=== PATIENT | female | born 1950 | race Caucasian/White ===

== ENCOUNTER → 2017-01-01 | Outpatient (CLI) | payer MEDICARE ==
[~2017-01-01] MED LIST: CARI350T20 PO; CYMB60CA PO; DOCU1CAP39 PO; FENT50T T-DERMAL; LISI10TA3 PO; LYRI100C PO; MIRA33504 PO; MONT10TA2 PO; OXYC1TAB36 PO; PANT40TA3 PO; ZOFR4TAB3 SL; ZYRT10CA PO
--- NOTE | 2017-01-11 10:27 | RSPPFT ---
DATE OF PROCEDURE: 01/01/17 COMMENTS: VOLUMES DYNAMIC: FVC normal; FEV1 mildly reduced. STATIC: TLC, FRC and RV normal. FLOWS: FEV1% mildly reduced; FEF 25-75 severely reduced. DIFFUSION: Normal. FLOW VOLUME LOOP: Pattern of variable intrathoracic airways obstruction. IMPRESSION: Mild obstructive ventilatory defect with no significant hyperinflation and no reduction in diffusion. There is significant improvement post-bronchodilator.
== END ==
LOC: HRSP 12:56
PROVIDERS: ATTEND Internal Medicine
DX: J45.909 Unspecified asthma, uncomplicated (principal)
CPT/HCPCS: 94060; 94620; 94726; 94729

== ENCOUNTER 2017-01-22 16:32 | Emergency (ER) | payer MEDICARE ==
[~2017-01-22] VITALS: Ht 154.9 cm; Wt 66.0 kg
[2017-01-22 16:40] VITALS: BP 153/74; PULSE 74; RESP 16; TEMP 98.9; O2SAT 95
--- NOTE | 2017-01-22 17:00 | RADRPT ---
EXAM DATE/TIME: 01/22/2017 16:49 [facility] COMPARISON: No previous studies available for comparison. INDICATIONS : Left wrist pain and swelling since falling yesterday. MEDICAL HISTORY : None. SURGICAL HISTORY : None. ENCOUNTER: Initial ACUITY: 2 days PAIN SCORE: 6/10 LOCATION: Left wrist. FINDINGS: Three view examination of the left wrist demonstrates no soft tissue swelling, dislocation, or fractu re. The carpal bones are in normal alignment. The joint spaces are maintained. Mild osteopenia. CONCLUSION: Normal examination for a patient of this age. Renato Ching MD on January 22, 2017 at 16:58 Board Certified Radiologist. This report was verified electronically.
--- NOTE | 2017-01-22 17:11 | PD ---
HPI Chief Complaint: Injury Time Seen by Provider: 17:03 Travel History International Travel<30 days: No Contact w/Intl Traveler<30days: No Traveled to known affect area: No History of Present Illness HPI Patient comes in complaining of left wrist pain describes as "it just hurts". Patient reports she had a mechanical fall tripping over a bag of dirt causing her to land on her left outstretched hand. Patient has been using Lamont wrap and ice with minimal relief symptoms. Pain is worse certain movement of her left wrist. Denies hitting her head or loss of consciousness. Denies any radiation of the pain. Denies any numbness or tingling anywhere. PFSH Past Medical History Hx Anticoagulant Therapy: No Arthritis: Yes Asthma: Yes Depression: Yes Cancer: No Cardiovascular Problems: Yes Diabetes: No Diminished Hearing: No Endocrine: No Fibromyalgia: Yes Gastrointestinal Disorders: Yes GERD: Yes Genitourinary: No Hepatitis: No Hiatal Hernia: No Hypertension: Yes Immune Disorder: No Musculoskeletal: Yes Neurologic: No Reproductive: No Respiratory: Yes (ASTHMA) Immunizations Current: No Thyroid Disease: No : 2 Para: 2 Past Surgical History Genitourinary Surgery: Yes (RECTOCELE) Gynecologic Surgery: Yes Hysterectomy: Yes Oral Surgery: Yes (SINUS SURGERY) Tonsillectomy: Yes Other Surgery: Yes (ESOPHOGEAL HERNIA REPAIR) Social History Alcohol Use: Yes (1 GLASS WINE W/ DINNER DAILY) Tobacco Use: No Substance Use: No Allergies-Medications (Allergen,Severity, Reaction): Coded Allergies: No Known Allergies (Verified , 01/22/17) Reported Meds & Prescriptions Reported Meds & Active Scripts Active Pantoprazole (Pantoprazole Sodium) 40 Mg Tab 40 Mg PO DAILY Miralax Powder (Polyethylene Glycol 3350 Powder) 17 Gm Powd 17 Gm PO DAILY Mix and dissolve one measuring cap-ful (17 grams) in water or juice. Dok (Docusate Sodium) 100 Mg Cap 100 Mg PO BID 30 Days Oxycodone-Acetaminophen 10-325 mg Tab 1 Tab PO Q6H PRN Duragesic Patch 72 HR (Fentanyl) 50 Mcg/Hr Patch 50 Mcg T-DERMAL Q72H Remove old patch when new one placed. Carisoprodol 350 Mg Tab 350 Mg PO Q8HR Zofran Odt (Ondansetron Odt) 4 Mg Tab 4 Mg SL Q6HR PRN Reported Singulair (Montelukast Sodium) 10 Mg Tab 10 Mg PO HS Lisinopril 10 Mg Tab 10 Mg PO DAILY Zyrtec Allergy (Cetirizine HCl) 10 Mg Cap 10 Mg PO DAILY Cymbalta DR (Duloxetine HCl) 60 Mg Capdr 60 Mg PO DAILY Lyrica (Pregabalin) 100 Mg Cap 100 Mg PO DAILY Review of Systems Except as stated in HPI: all other systems reviewed are Neg Physical Exam Narrative GENERAL: Well-developed, well nourished, in no acute distress, and non-ill appearing. SKIN: Focused skin assessment warm and dry. HEAD: Atraumatic. Normocephalic. EYES: Pupils equal and round. EOMI. No scleral icterus. No injection or drainage. ENT: No nasal bleeding or discharge. Mucous membranes pink and moist. NECK: Trachea midline. Supple. No nuclear rigidity. CARDIOVASCULAR: Radial pulses 2+, intact, and equal bilaterally. Capillary refill less than 2 seconds. RESPIRATORY: No accessory muscle use. No respiratory distress. MUSCULOSKELETAL: No obvious deformities. No clubbing. No cyanosis. No edema. Full range of motion. Wrist: FROM and equal BL with passive flexion, extension, and pronation/supination. Capillary refill less than 2 seconds distal to injury and equal BL. FROM distal to injury and equal BL. Strength distal to injury equal BL. NV intact distal to injury. Flexion and extension of thumb equal BL. Equal strength and movement with abduction/adductions of BL fingers. Tile Sprayer strength equal BL. No tenderness to the anatomical snuffbox. Patient reports tenderness palpation over dorsal aspect of left wrist. There is no crepitus. NEUROLOGICAL: Awake and alert. No obvious cranial nerve deficits. Motor grossly within normal limits. Normal speech. PSYCHIATRIC: Appropriate mood and affect; insight and judgment normal. Data Data Last Documented VS Vital Signs Date Time Temp Pulse Resp B/P (MAP) Pulse Ox O2 Delivery O2 Flow Rate FiO2 01/22/17 16:40 98.9 74 16 153/74 (100) 95 Orders Orders Ice/Cold Pack (01/22/17 16:46) Wrist, Complete ([id number]) (01/22/17 ) Splint Or Brace Apply/Monitor (01/22/17 17:07) Ed Discharge Order (01/22/17 17:07) MDM Medical Decision Making Medical Screen Exam Complete: Yes Emergency Medical Condition: Yes Differential Diagnosis Fracture, sprain, contusion, other Narrative Course There is no clinical evidence for fracture. There is no clinical evidence to suspect bony injury by exam. Radiographic examination revealed no fracture seen at this time. No obvious ligamental injury or internal derangement is noted at this time. The distal extremity appears neurovascularly intact, without evidence of neurovascular injury nor compartment syndrome. Tendon exam also was intact. The effected limb was splinted. The patient was discharged on pain medication along with sprain and splint care instructions and given warnings for vascular compromise. The patient is to follow up with her primary care doctor and/or hand surgeon. The patient agrees with plan. Patient in no obvious distress upon re-evaluation. All pertinent Radiology result(s) discussed with patient. Any questions/concerns in reference to patient diagnosis/condition discussed and clarified prior to patient's discharge. Reinforced sheer importance of close follow up with patient's primary physician or primary care clinic and/or hand surgeon. Instructed patient to return to ED immediately, if symptoms return/worsen. Patient showed understanding of above instructions. Further instructions and recommendations were detailed in discharge paperwork. Patient ambulated without difficulty out of ED at discharge. Diagnosis Primary Impression: Left wrist sprain Qualified Codes: S63.502A - Unspecified sprain of left wrist, initial encounter Patient Instructions: General Instructions, Splint Care (ED), Wrist Sprain (ED) Additional Instructions: Follow-up with your primary care physician and/or hand surgeon in 3-5 days for reevaluation. Use [id number] Tylenol and/or ibuprofen as needed for pain. Follow instructions on the packaging. Plan ice to affected area 20 minutes per hour as needed for pain. Wear a splint for comfort as needed. Return to the emergency department if symptoms get worse. Disposition: 01 DISCHARGE HOME Condition: Stable Mariusz Guy Jan 22, 2017 17:11
== END 2017-01-22 17:24 | disposition home or self-care (01) ==
LOC: PHEFT 16:32
DX: S63.502A Unspecified sprain of left wrist, initial encounter (principal); M25.532 Pain in left wrist; W01.0XXA Fall on same level from slipping, tripping and stumbling without subsequent striking against object, initial encounter; K21.9 Gastro-esophageal reflux disease without esophagitis; J45.909 Unspecified asthma, uncomplicated; Z79.899 Other long term (current) drug therapy
CPT/HCPCS: 73110; 99283; L3908

== ENCOUNTER 2017-06-03 10:48 | Inpatient (IN) | payer MEDICARE ==
[2017-06-03] VITALS (13 sets, daily range): BP systolic 70–127; BP diastolic 45–60; PULSE 60–77; RESP 12–26; TEMP 96.6–98.4; O2SAT 90–100
[~2017-06-03] VITALS: Ht 154.9 cm; Wt 73.0 kg
--- NOTE | 2017-06-03 10:59 | PD ---
HPI Chief Complaint: Altered Mental Status Time Seen by Provider: 10:58 Travel History International Travel<30 days: No Contact w/Intl Traveler<30days: No Traveled to known affect area: No History of Present Illness HPI 67-year-old female came to the emergency room with history of altered mental status. Patient was in the hospital with her to get her [id number]' s dialysis done. As per the patient has been lethargic since this morning at around 8:30 AM he noticed that she was dozing off more than usual. As per the last night she had a lot to drink which included multiple cocktails, shots of saida and a few glasses of wine. While patient was in the waiting room the honing machine operator tool noticed how she was behaving and recommended that she should come to the emergency room to be checked out. In triage patient was extremely groggy and blood pressure in the 70s. She was brought in emergently. Patient continued to be very lethargic and unable to answer questions. Blood pressure was 70 per palp upon arrival. Blood sugar was 134. Patient obviously was in no condition to give any meaningful history. As per the she is on sleeping pills as well as pain medications. PFSH Past Medical History Narrative Medical List of her past medical, surgical, social and family history was reviewed from the nursing note. Hx Anticoagulant Therapy: No Arthritis: Yes Asthma: Yes Depression: Yes Cancer: No Cardiovascular Problems: Yes Diabetes: No Diminished Hearing: No Endocrine: No Fibromyalgia: Yes Gastrointestinal Disorders: Yes GERD: Yes Genitourinary: No Hepatitis: No Hiatal Hernia: No Hypertension: Yes Immune Disorder: No Musculoskeletal: Yes Neurologic: No Reproductive: No Respiratory: Yes (ASTHMA) Immunizations Current: No Thyroid Disease: No ?: Not : 2 Para: 2 Past Surgical History Genitourinary Surgery: Yes (RECTOCELE) Gynecologic Surgery: Yes Hysterectomy: Yes Oral Surgery: Yes (SINUS SURGERY) Tonsillectomy: Yes Other Surgery: Yes (ESOPHOGEAL HERNIA REPAIR) Social History Alcohol Use: Yes (1 GLASS WINE W/ DINNER DAILY) Tobacco Use: No Substance Use: No Allergies-Medications (Allergen,Severity, Reaction): Coded Allergies: No Known Allergies (Verified Allergy, Unknown, 06/03/17) Comments no known drug allergies. Reported Meds & Prescriptions Reported Meds & Active Scripts Active Reported Seroquel (Quetiapine Fumarate) 50 Mg Tab 50 Mg PO BID Gabapentin 100 Mg Cap 200 Mg PO BID Ventolin Hfa 18 GM Inh (Albuterol Sulfate) 90 Mcg/Act Aer 1-2 Puff INH Q6H PRN Flonase Nasal Burton (Fluticasone Nasal Burton) 50 Mcg/Act Burton 2 Burton EACH NARE DAILY Advair Diskus Inh (Fluticasone-Salmeterol Inh) 500-50 Mcg/Blist Aer 1 Puff INH BID Rinse mouth after use. Hydrocodone-Acetaminophen 10-325 mg Tab 1 Tab PO TID PRN Omeprazole 40 Mg Cap 40 Mg DAILY Singulair (Montelukast Sodium) 10 Mg Tab 10 Mg PO HS Cymbalta DR (Duloxetine HCl) 60 Mg Capdr 60 Mg PO DAILY Narrative Medication List of her home medications reviewed from the nursing note. Review of Systems ROS Limitations: Altered Mental Status Except as stated in HPI: all other systems reviewed are Neg Physical Exam Narrative GENERAL: Stuporous, maintaining respirations SKIN: Focused skin assessment warm/dry. Pale HEAD: Atraumatic. Normocephalic. EYES: Pupils equal and round. No scleral icterus. No injection or drainage. ENT: No nasal bleeding or discharge. Mucous membranes pink and moist. NECK: Trachea midline. No JVD. CARDIOVASCULAR: Regular rate and rhythm. No murmur appreciated. RESPIRATORY: No accessory muscle use. Clear to auscultation. Breath sounds equal bilaterally. GASTROINTESTINAL: Abdomen soft, non-tender, nondistended. Hepatic and splenic margins not palpable. MUSCULOSKELETAL: No obvious deformities. No clubbing. No cyanosis. No edema. NEUROLOGICAL: GCS of 11 PSYCHIATRIC: Unable to assess Data Data Last Documented VS Vital Signs Date Time Temp Pulse Resp B/P (MAP) Pulse Ox O2 Delivery O2 Flow Rate FiO2 06/03/17 11:45 96.6 65 13 105/56 (72) 98 Nasal Cannula 2.00 Orders Orders Naloxone Inj (Narcan Inj) (06/03/17 11:04) Electrocardiogram (06/03/17 11:12) Ammonia (06/03/17 11:12) Complete Blood Count With Diff (06/03/17 11:12) Comprehensive Metabolic Panel (06/03/17 11:12) Creatine Kinase (Cpk) (06/03/17 11:12) Prothrombin Time / Inr (Pt) (06/03/17 11:12) Troponin I (06/03/17 11:12) Thyroid Stimulating Hormone (06/03/17 11:12) Urinalysis - C+S If Indicated (06/03/17 11:12) Lactic Acid Sepsis Protocol (06/03/17 11:12) Blood Culture (06/03/17 11:12) Chest, Single Ap (06/03/17 11:12) Ct Brain W/O Iv Contrast(Rout) (06/03/17 11:12) Blood Glucose (06/03/17 11:12) Ecg Monitoring (06/03/17 11:12) Iv Access Insert/Monitor (06/03/17 11:12) Oximetry (06/03/17 11:12) Sodium Chloride 0.9% Flush (Ns Flush) (06/03/17 11:15) Sodium Chlor 0.9% 1000 Ml Inj (Ns 1000 M (06/03/17 11:12) Drug Screen, Random Urine (06/03/17 11:12) Alcohol (Ethanol) (06/03/17 11:12) Tylenol (Acetaminophen) (06/03/17 11:12) Salicylates (Aspirin) (06/03/17 11:12) Sodium Chlor 0.9% 1000 Ml Inj (Ns 1000 M (06/03/17 11:15) Urinary Catheter Insert/Apply (06/03/17 11:12) Urine Culture (06/03/17 11:15) Sodium Chlor 0.9% 1000 Ml Inj (Ns 1000 M (06/03/17 12:45) Acetylcysteine Inj (Acetadote Inj) (06/03/17 13:00) Acetylcysteine Inj (Acetadote Inj) (06/03/17 13:00) Acetylcysteine Inj (Acetadote Inj) (06/03/17 13:00) Acetylcysteine Inj (Acetadote Inj) (06/03/17 14:00) Arterial Blood Gas (Abg) (06/03/17 ) Mri Brain W/O Contrast (06/03/17 ) Sodium Chlor 0.9% 1000 Ml Inj (Ns 1000 M (06/03/17 13:30) Admit Order (Ed Use Only) (06/03/17 13:20) Labs Laboratory Tests Test 06/03/17 11:15 06/03/17 11:17 06/03/17 11:23 White Blood Count 14.2 TH/MM3 Red Blood Count 4.27 MIL/MM3 Hemoglobin 12.8 GM/DL Hematocrit 38.5 % Mean Corpuscular Volume 90.1 FL Mean Corpuscular Hemoglobin 30.0 PG Mean Corpuscular Hemoglobin Concent 33.2 % Red Cell Distribution Width 13.0 % Platelet Count 216 TH/MM3 Mean Platelet Volume 8.2 FL Neutrophils (%) (Auto) 68.4 % Lymphocytes (%) (Auto) 21.7 % Monocytes (%) (Auto) 5.3 % Eosinophils (%) (Auto) 4.4 % Basophils (%) (Auto) 0.2 % Neutrophils # (Auto) 9.7 TH/MM3 Lymphocytes # (Auto) 3.1 TH/MM3 Monocytes # (Auto) 0.8 TH/MM3 Eosinophils # (Auto) 0.6 TH/MM3 Basophils # (Auto) 0.0 TH/MM3 CBC Comment DIFF FINAL Differential Comment Prothrombin Time 10.4 SEC Prothromb Time International Ratio 1.0 RATIO Urine Color YELLOW Urine Turbidity HAZY Urine pH 5.5 Urine Specific [place] 1.021 Urine Protein TRACE mg/dL Urine Glucose (UA) NEG mg/dL Urine Ketones NEG mg/dL Urine Occult Blood NEG Urine Nitrite NEG Urine Bilirubin NEG Urine Urobilinogen LESS THAN 2.0 MG/DL Urine Leukocyte Esterase NEG Urine RBC 1 /hpf Urine WBC 4 /hpf Urine Squamous Epithelial Cells 2 /hpf Urine Calcium Oxalate Crystals OCC /hpf Urine Bacteria FEW /hpf Urine Hyaline Casts 22 /lpf Urine Mucus FEW /lpf Microscopic Urinalysis Comment CATH-CULTURE IND Blood Urea Nitrogen 24 MG/DL Creatinine 1.37 MG/DL Random Glucose 136 MG/DL Total Protein 6.4 GM/DL Albumin 3.7 GM/DL Calcium Level 8.9 MG/DL Alkaline Phosphatase 70 U/L Aspartate Amino Transf (AST/SGOT) 17 U/L Alanine Aminotransferase (ALT/SGPT) 16 U/L Total Bilirubin 0.2 MG/DL Sodium Level 139 MEQ/L Potassium Level 4.9 MEQ/L Chloride Level 106 MEQ/L Carbon Dioxide Level 26.0 MEQ/L Anion Gap 7 MEQ/L Estimat Glomerular Filtration Rate 38 ML/MIN Total Creatine Kinase 163 U/L Troponin I LESS THAN 0.02 NG/ML Thyroid Stimulating Hormone 3rd Gen 4.560 uIU/ML Salicylates Level LESS THAN 1.7 MG/DL Acetaminophen Level 8.8 MCG/ML Ethyl Alcohol Level 3 MG/DL Urine Opiates Screen POS Urine Barbiturates Screen NEG Urine Amphetamines Screen NEG Urine Benzodiazepines Screen POS Urine Cocaine Screen NEG Urine Cannabinoids Screen NEG Lactic Acid Level 2.0 mmol/L Ammonia 23 MCMOL/L MDM Medical Decision Making Medical Screen Exam Complete: Yes Emergency Medical Condition: Yes Medical Record Reviewed: Yes Interpretation(s) Twelve-lead EKG was reviewed by me. Normal sinus rhythm, normal axis, nonspecific ST-T wave changes. Heart rate of 61 bpm. Differential Diagnosis Sepsis, metabolic encephalopathy, toxic encephalopathy Narrative Course 12:52 PM patient was given 0.4 mg of Narcan initially which caused reversal of her stuporous state. She was started on 2 L of IV fluid bolus simultaneously. Currently her blood pressure is 91 systolic. Patient continues to be in GCS of 11. I've ordered for a third liter of IV fluid bolus. Patient has made a second 100 ML of urine from the Lucas catheter into the urine bag. Blood test results are back. She has some leukocytosis. Lactic acid is within normal limits and rest of the chemistry is within normal limit. TSH is elevated. UA is negative. Patient was positive for opiates and benzo in her urine drug screen. I would prefer to admit the patient to the intensive care unit at this point. Awaiting for the transition teacher to call back. Critical Care Narrative Aggregate critical care time was 75 minutes. Time to perform other separately billable procedures was not included in the critical care time. My time did not include minutes spent treating any other patients simultaneously or on activities that did not directly contribute to the patient's treatment. The services I provided to this patient were to treat and/or prevent clinically significant deterioration that could result in: Hypertension, altered mental status, possible Tylenol toxicity I provided critical care services requiring my management, as noted below: Chart data review, documentation time, medication orders and management, vital sign assessments/reviewing monitor data, ordering and reviewing lab tests, ordering and interpreting/reviewing x-rays and diagnostic studies, care of the patient and discussion of the patient with the admitting physicians. Procedures EKG Prior to Arrival: No Diagnosis Primary Impression: Altered mental status Qualified Codes: R40.1 - Stupor Additional Impressions: Hypovolemic shock Toxic encephalopathy Admitting Information Admitting Physician Requests: Admit Scripts Levofloxacin (Levaquin) 750 Mg Tablet 750 MG PO DAILY for Infection, #7 TAB 0 Refills Prov: Carmen Mejia DO 06/04/17 Patt Valencia MD Jun 03, 2017 10:59
[2017-06-03] MEDS ORDERED: CYMB60CA PO (11:04)
[2017-06-03] MEDS ORDERED: NALOXONE HCL 0.4 MG/ML AMP ONE (11:04)
[2017-06-03] MEDS ORDERED: SODIUM CHLOR 0.9% 1000 ML INJ 1,000 ML IV SCH (11:12)
[2017-06-03] MEDS ORDERED: SODIUM CHLORIDE 0.9% FLUSH 10 ML FLUSH IV FLUSH PRN (11:15)
[2017-06-03] MEDS ORDERED: SODIUM CHLOR 0.9% 1000 ML INJ 1,000 ML IV ONE ×3 (11:15→13:30)
[2017-06-03] MEDS ORDERED: ADVA500A INH (11:27)
[2017-06-03] MEDS ORDERED: HYDR-3583 PO (11:27)
[2017-06-03] MEDS ORDERED: FLUT1SPR5 EACH NARE (11:27)
[2017-06-03] MEDS ORDERED: AMOX500C PO (11:27)
[2017-06-03] MEDS ORDERED: SERO50TA PO (11:27)
[2017-06-03] MEDS ORDERED: PRED10PA2 PO (11:27)
[2017-06-03] MEDS ORDERED: GABA100C4 PO (11:27)
[2017-06-03] MEDS ORDERED: VENTAER INH (11:27)
[2017-06-03] MEDS ORDERED: OMEP40CA2 (11:27)
--- NOTE | 2017-06-03 11:44 | RADRPT ---
EXAM DATE/TIME: 06/03/2017 11:26 [facility] COMPARISON: CHEST SINGLE AP, March 29, 2016, 21:16. INDICATIONS : Syncope, short of breath, lethargic MEDICAL HISTORY : Hypertension. Gastroesophageal reflux disease. asthma, fibromyalgia SURGICAL HISTORY : Hysterectomy. Tonsillectomy. esophageal repair, sinus surgery ENCOUNTER: Initial ACUITY: 1 day PAIN SCORE: Non-responsive. LOCATION: Bilateral chest FINDINGS: Portable AP view of the chest demonstrates a normal-sized cardiac silhouette. There is marked underin flation of the lungs with elevation the right hemidiaphragm. There is mild bibasilar opacity. No pleu ral effusion or pneumothorax is identified. The bones demonstrate no acute finding. CONCLUSION: Underinflation with bibasilar airspace opacity which could represent either atelectasis or airspace c onsolidation. Issac Ortiz MD on June 03, 2017 at 11:42 Board Certified Radiologist. This report was verified electronically.
[2017-06-03 11:46] LABS: AUTOMATED NEUTROPHIL # 9.7 TH/MM3 (1.8-7.7); BASOPHIL % 0.2 % (0.0-2.0); EOSINOPHIL # 0.6 TH/MM3 (0-0.4); EOSINOPHIL % 4.4 % (0.0-4.0); HEMATOCRIT 38.5 % (35.0-46.0); HEMOGLOBIN 12.8 GM/DL (11.6-15.3); LYMPH % 21.7 % (9.0-44.0); LYMPHOCYTE # 3.1 TH/MM3 (1.0-4.8); MEAN CELL VOLUME 90.1 FL (80.0-100.0); MEAN CORPUSCULAR HGB CONC 33.2 % (32.0-36.0); MEAN PLATELET VOLUME 8.2 FL (7.0-11.0); MONO % 5.3 % (0.0-8.0); MONOCYTE # 0.8 TH/MM3 (0-0.9); NEUT % 68.4 % (16.0-70.0); PLATELET COUNT 216 TH/MM3 (150-450); RED BLOOD COUNT 4.27 MIL/MM3 (4.00-5.30); WHITE BLOOD COUNT 14.2 TH/MM3 (4.0-11.0)
[2017-06-03 11:55] LABS: PROTHROMBIN TIME - PATIENT 10.4 SEC (9.8-11.6)
--- NOTE | 2017-06-03 11:58 | RADRPT ---
EXAM DATE/TIME: 06/03/2017 11:48 [facility] COMPARISON: No previous studies available for comparison. INDICATIONS : Altered mental status RADIATION DOSE: 56.35 CTDIvol (mGy) MEDICAL HISTORY : Hypertension. Fibromyalgia SURGICAL HISTORY : Hysterectomy. ENCOUNTER: Initial ACUITY: 1 day PAIN SCALE: Non-responsive LOCATION: Bilateral cranial TECHNIQUE: Multiple contiguous axial images were obtained of the head. Using automated exposure control and adjustment of the mA and/or kV according to patient size, radiation dose was kept as low as reasonably achievable to obtain optimal diagnostic quality images. DICOM format image data is av ailable electronically for review and comparison. FINDINGS: CEREBRUM: The ventricles are normal for age. No evidence of midline shift, mass lesion, hemorrha ge or acute infarction. No extra-axial fluid collections are seen. POSTERIOR FOSSA: The cerebellum and brainstem are intact. The 4th ventricle is midline. The cer ebellopontine angle is unremarkable. EXTRACRANIAL: The visualized portion of the orbits is intact. SKULL: The calvaria is intact. No evidence of skull fracture. CONCLUSION: Negative for an acute process. Pacheco Baker MD FACR on June 03, 2017 at 11:56 Board Certified Radiologist. This report was verified electronically.
[2017-06-03 11:59] LABS: BACTERIA, URINE FEW /hpf; BILIRUBIN, URINE NEG (NEG); BLOOD, URINE NEG (NEG); CALCIUM OXALATE CRYSTALS,URINE OCC /hpf; GLUCOSE,URINE NEG (NEG); HYALINE CAST, URINE 22 /lpf (RARE); KETONE, URINE NEG (NEG); MUCUS URINE FEW /lpf (OCC); NITRITE,URINE NEG (NEG); PH, URINE 5.5 (5.0-8.5); SQUAMOUS EPITHELIAL CELL URINE 2 /hpf (0-5); URINE COLOR YELLOW (YELLW/STRAW); URINE LEUKOCYTE ESTERASE NEG (NEG)
[2017-06-03 12:18] LABS: ACETAMINOPHEN 8.8 MCG/ML (10.0-30.0); ALBUMIN 3.7 GM/DL (3.4-5.0); ALKALINE PHOSPHATASE 70 U/L (45-117); ALT (GPT) 16 U/L (10-53); AST (GOT) 17 U/L (15-37); BLOOD UREA NITROGEN 24 MG/DL (7-18); CALCIUM 8.9 MG/DL (8.5-10.1); CHLORIDE 106 MEQ/L (98-107); CREATININE 1.37 MG/DL (0.50-1.00); GLOMERULAR FILTRATION RATE 38 ML/MIN (>89); GLUCOSE,RANDOM 136 MG/DL (74-106); SODIUM (NA) 139 MEQ/L (136-145); TOTAL BILIRUBIN ADULT 0.2 MG/DL (0.2-1.0); TOTAL PROTEIN 6.4 GM/DL (6.4-8.2); TROPONIN I LESS THAN 0.02 NG/ML (0.02-0.05)
[2017-06-03] MEDS ORDERED: WATER IV ONE ×2 (13:00)
[2017-06-03] MEDS ORDERED: WATE IV ONE ×6 (13:00→14:00)
[2017-06-03] MEDS ORDERED: DEXTROSE 5% IV ONE ×8 (13:00→14:00)
[2017-06-03] MEDS ORDERED: ACETYLCYSTEINE IV ONE ×8 (13:00→14:00)
[2017-06-03] MEDS ORDERED: RESP: ALBUTEROL 2.5 MG/IPRATROPIUM 0.5 MG NEB (PRN) INH (13:30)
[2017-06-03] MEDS ORDERED: SENNOSIDES 8.6 MG TAB PO PRN (13:30)
[2017-06-03] MEDS ORDERED: MISCELLANEOUS NURSING INFORMATION XX SCH (13:30)
[2017-06-03] MEDS ORDERED: BISACODYL 10 MG SUPP RECTAL PRN (13:30)
[2017-06-03] MEDS ORDERED: GLUCAGON 1 MG/ML VIAL OTHER PRN (13:30)
[2017-06-03] MEDS ORDERED: DEXTROSE 50% IN WATER 50 ML VIAL(D50) IV PUSH PRN (13:30)
[2017-06-03] MEDS ORDERED: LACTULOSE SYRUP 20 GM/30 ML CUP PO PRN (13:30)
[2017-06-03] MEDS ORDERED: MAGNESIUM HYDROXIDE SUSP 30 ML CUP PO PRN (13:30)
[2017-06-03] MEDS ORDERED: CHLORHEXIDINE GLUCONATE 2 % 1 PACK (2 CLOTHS) TOP PRN (13:30)
--- NOTE | 2017-06-03 16:32 | RADRPT ---
EXAM DATE/TIME: 06/03/2017 15:37 [facility] COMPARISON: No previous studies available for comparison. INDICATIONS : CVA. MEDICAL HISTORY : Hypertension. Gastroesophageal reflux disease. Arthritis. Asthma. Fibromyalgia. SURGICAL HISTORY : Rectocele repair. Sinus. Hernia. ENCOUNTER: Subsequent ACUITY: 1 day PAIN SCORE: 0/10 LOCATION: cranial TECHNIQUE: Multiplanar, multisequence MRI of the brain was performed without contrast. FINDINGS: Minimal periventricular white matter changes are evident There is no restricted diffusion evident. There is focally of high signal intensity in the global fo ld region on the right that probably represents an shine through. Ventricular size is appropriate. Minimal extra-axial fluid collection appreciated. The posterior fossa is unremarkable Fourth ventricle The orbits and pedicles facet is visualized unremarkable Midline structures are intact. CONCLUSION: Negative MR of the brain for acute ischemic event. There is no parenchymal hemorrhage, acute infarction or mass lesion. Pacheco Baker MD FACR on June 03, 2017 at 16:29 Board Certified Radiologist. This report was verified electronically.
[2017-06-03] MEDS: RESP: ALBUTEROL 2.5 MG/IPRATROPIUM 0.5 MG NEB (SCH) INH ×2 (16:45→20:01)
[2017-06-03] MEDS: INSULIN NovoLIN REGULAR SUPPLEMENTAL SCALE SQ SCH ×2 (17:00→20:26)
[2017-06-03] MEDS ORDERED: cefTRIAXone INJ 1,000 MG in SODIUM CHLORIDE 0.9% INJ 100 ML IV SCH (17:00)
[2017-06-03] MEDS: FOLIC ACID 1 MG TAB PO SCH (17:16)
[2017-06-03] MEDS: LEVOFLOXACIN 500 MG TAB PO SCH (17:16)
[2017-06-03] MEDS: THIAMINE HCL 100 MG TAB PO SCH (17:16)
[2017-06-03] MEDS: FAMOTIDINE 20 MG/2 ML VIAL IV PUSH SCH ×2 (17:16→20:25)
[2017-06-03] MEDS: MULTIVITAMIN TAB PO SCH (17:16)
--- NOTE | 2017-06-03 17:16 | MH ---
cc: Jennifer Ocampo MD DATE OF ADMISSION: 06/03/2017 HISTORY OF PRESENT ILLNESS: The patient is a 67-year-old female with past medical history of rheumatoid arthritis, bronchial asthma, hypertension, GERD, fibromyalgia, who presented to [facility] Emergency Department with altered mental status. She was in the hospital with her to get her father to the dialysis unit and according to ED records the patient became lethargic this morning around 8:30 and he noticed that she was dozing off more than usual. The patient is an active drinker and she had lots to drink last night which included multiple cocktails, shots of Antonia and a few glasses of wine. In triage the patient was extremely groggy, lethargic and hypotensive with systolic blood pressure in the 70s. She was unable to answer any questions and her blood sugar was 134. In the ED she is currently receiving her third liter of normal saline with current blood pressure 105/56. A CT scan of the brain was obtained which showed no acute intracranial process. She had a temperature of 96.6 rectally and her urine drug screen was positive for opiates and benzodiazepines. ABG was performed on 2 liters nasal cannula which showed acute hypercapnic respiratory acidosis with a pH of 7.24, CO2 52, PaO2 95, bicarb 21, sat 95%. She was given Narcan 0.4 mg without any significant effect. Chest x-ray in the ED showed underinflation of bibasilar airspace opacity which could represent either atelectasis or airspace consolidation. Her laboratory data is significant for mild acute kidney injury with creatinine of 1.37. Her lactic acid level measured at 2.0. She is on several antipsychotic and antidepressants medications which include Seroquel, Cymbalta. In addition she is on gabapentin and hydrocodone. When seen the patient is able to respond to questions appropriately; however, she looks lethargic and dozes off intermittently. PAST MEDICAL HISTORY: Significant for: 1. Hypertension 2. Asthma 3. Rheumatoid arthritis 4. GERD 5. Fibromyalgia PAST SURGICAL HISTORY: 1. Previous gastrectomy for peptic ulcer disease 2. Previous hernia repair 3. Previous sinus surgery SOCIAL HISTORY: Active drinker. Nonsmoker. ALLERGIES: NO KNOWN DRUG ALLERGIES REPORTED MEDICATIONS: 1. Seroquel 2. Gabapentin 3. Albuterol 4. Flonase 5. Medrol Dosepak 6. Amoxicillin 7. Advair 8. Hydrocodone 9. Singulair 10. Cymbalta 11. Omeprazole REVIEW OF SYSTEMS: As per history of present illness. The rest of the review of systems is limited as the patient is a poor historian. PHYSICAL EXAMINATION: GENERAL: A 67-year-old female lying in bed, in no acute respiratory distress. VITAL SIGNS: Temperature 96.6, pulse 65, respiratory rate 14-16, blood pressure currently 105/56. Saturation 98% on 2 liters. HEENT: Atraumatic, normocephalic. Pupils are equal, round, reactive to light and accommodation. Extraocular muscles are intact. Conjunctivae pink. Nonicteric sclerae. Oral mucosa within normal. NECK: Supple. No JVD, adenopathy or thyromegaly. Trachea midline. CARDIOVASCULAR: Regular rate and rhythm. Normal S1, S2. No murmurs, rubs or gallops noted. PULMONARY: Bilateral equal air entry. No rales or wheezing. ABDOMEN: Soft, obese. Nontender. No distention. Positive bowel sounds. EXTREMITIES: No cyanosis, clubbing or edema. NEURO: No focal sensory deficit. LABORATORY DATA: Sodium 139, potassium 4.9, chloride 106, CO2 26, BUN 24, creatinine 1.37, glucose 136, lactic acid 2. LFTs within normal. Troponin less than 0.02. Total CK 163. TSH 4.5. WBC 14, hemoglobin 12.8, hematocrit 38, platelet count 216. INR 1, PT 10.4. Urinalysis few bacteria, occasional calcium oxylate crystals. Negative leukocyte esterase. RADIOGRAPHIC STUDIES: Chest x-ray showed bibasilar airspace opacity which likely is representing atelectasis. CT scan of the brain negative for acute intracranial process. IMPRESSION: 1. Acute hypercapnic respiratory insufficiency. 2. Altered mental status, multifactorial, likely secondary to ETOH and polysubstance abuse. 3. Mild acute kidney injury. 4. ETOH use. 5. Leukocytosis. 6. History of bronchial asthma. 7. Rheumatoid arthritis. 8. Hypertension. 9. Gastroesophageal reflux disease. 10. Fibromyalgia. RECOMMENDATIONS: 1. Monitor neuro status closely and avoid any sedatives. CT scan of the brain in the ED negative for acute intracranial process and her urine drug screen was positive for opiates and benzodiazepines. She is scheduled to undergo MRI of the brain. Will hold Seroquel, Cymbalta, gabapentin and hydrocodone for now. 2. She is scheduled to undergo MRI of the brain. 3. Continue with oxygen and maintain sats above 92%. 4. Bronchodilators in the form of DuoNeb q. 6 plus q. 2 p.r.n. for shortness of breath. In addition will continue with Singulair 10 mg daily and resume Advair. Noninvasive positive pressure ventilation p.r.n. for respiratory distress. 5. Incentive spirometry q. 1 hour while awake. 6. Will repeat ABG. 7. Monitor heart rate and blood pressure closely and maintain MAP greater than 65 mmHg. She was given 3 liters of crystalloids in the ED. Will continue with IV fluids in the form of D5 NS at 84 mL an hour. Lactic acid level measured at 2.0 and troponin less than 0.02. 8. Monitor renal function, I and Os and avoid nephrotoxins. Electrolyte replacement per protocol and IV fluids as stated above. 9. Keep n.p.o. for now and place on Pepcid for GI prophylaxis. 10. Speech evaluation and diet per speech. 11. Monitor for signs of infections which include fever and WBC. Followup on the blood cultures and urine culture. Will hold off on antibiotics at this time as there is no evidence of any infectious process. 12. Monitor CBC. 13. Place on sliding scale insulin with Accu-Cheks to maintain euglycemia. 14. GI prophylaxis with Pepcid and DVT prophylaxis with SCDs and heparin subcutaneous. [id number] Addendum: Patient is doing better seems more awake and alert wants to go home. MRI brain negative for acute process Hemodynamics overall improved. Will sign off and transfer care to [facility]. MD LORENZO Lynch/ANMOL/alejandra , 03:38 PM , 04:45 PM MARIA ELENA
[2017-06-03] MEDS: HEPARIN SODIUM - SQ 10,000 UNITS/ML VIAL SQ SCH (17:17)
[2017-06-03] MEDS: DEXT 5%-NACL 0.9% 1000 ML INJ 1,000 ML IV SCH (17:30)
[2017-06-03] MEDS: BUDESONIDE-FORMOTEROL 160/4.5 MCG INHALER INH SCH (20:26)
[2017-06-03] MEDS: DOCUSATE SODIUM 50 MG/SENNA 8.6 MG TAB PO SCH (20:26)
[2017-06-03] MEDS ORDERED: MONTELUKAST SODIUM 10 MG TAB PO SCH (21:00)
[2017-06-04] VITALS (9 sets, daily range): BP systolic 109–142; BP diastolic 53–72; PULSE 68–100; RESP 16–35; TEMP 97.7–98.7; O2SAT 90–100
[2017-06-04] MEDS: HEPARIN SODIUM - SQ 10,000 UNITS/ML VIAL SQ SCH ×2 (03:25→15:13)
[2017-06-04] MEDS: DEXT 5%-NACL 0.9% 1000 ML INJ 1,000 ML IV SCH ×2 (03:25→13:20)
[2017-06-04] MEDS: RESP: ALBUTEROL 2.5 MG/IPRATROPIUM 0.5 MG NEB (SCH) INH ×3 (03:57→16:08)
[2017-06-04] MEDS ORDERED: CHLORHEXIDINE GLUCONATE 2 % 1 PACK (2 CLOTHS) TOP SCH (04:00)
[2017-06-04 04:10] LABS: AUTOMATED NEUTROPHIL # 4.1 TH/MM3 (1.8-7.7); BASOPHIL % 0.3 % (0.0-2.0); EOSINOPHIL # 0.9 TH/MM3 (0-0.4); EOSINOPHIL % 10.9 % (0.0-4.0); HEMATOCRIT 34.4 % (35.0-46.0); HEMOGLOBIN 11.7 GM/DL (11.6-15.3); LYMPHOCYTE # 2.6 TH/MM3 (1.0-4.8); MEAN CELL VOLUME 89.3 FL (80.0-100.0); MEAN CORPUSCULAR HEMOGLOBIN 30.4 PG (27.0-34.0); MONO % 6.7 % (0.0-8.0); MONOCYTE # 0.5 TH/MM3 (0-0.9); NEUT % 50.1 % (16.0-70.0); PLATELET COUNT 182 TH/MM3 (150-450); RED BLOOD COUNT 3.85 MIL/MM3 (4.00-5.30); WHITE BLOOD COUNT 8.1 TH/MM3 (4.0-11.0)
[2017-06-04 04:17] LABS: INTERNATIONAL NORMALIZED RATIO 1.1 RATIO; PROTHROMBIN TIME - PATIENT 11.1 SEC (9.8-11.6)
[2017-06-04 04:36] LABS: ALBUMIN 2.9 GM/DL (3.4-5.0); AST (GOT) 15 U/L (15-37); BICARBONATE 23.9 MEQ/L (21.0-32.0); BLOOD UREA NITROGEN 16 MG/DL (7-18); CALCIUM 7.7 MG/DL (8.5-10.1); CHLORIDE 115 MEQ/L (98-107); CREATININE 0.66 MG/DL (0.50-1.00); GLOMERULAR FILTRATION RATE 89 ML/MIN (>89); GLUCOSE,RANDOM 85 MG/DL (74-106); SODIUM (NA) 146 MEQ/L (136-145)
[2017-06-04 04:40] LABS: ALKALINE PHOSPHATASE 64 U/L (45-117); ALT (GPT) 17 U/L (10-53); TOTAL BILIRUBIN ADULT 0.2 MG/DL (0.2-1.0); TOTAL PROTEIN 5.2 GM/DL (6.4-8.2)
[2017-06-04] MEDS: FOLIC ACID 1 MG TAB PO SCH (07:45)
[2017-06-04] MEDS: DOCUSATE SODIUM 50 MG/SENNA 8.6 MG TAB PO SCH (07:45)
[2017-06-04] MEDS: LEVOFLOXACIN 500 MG TAB PO SCH (07:45)
[2017-06-04] MEDS: THIAMINE HCL 100 MG TAB PO SCH (07:46)
[2017-06-04] MEDS: MULTIVITAMIN TAB PO SCH (07:46)
[2017-06-04] MEDS: FAMOTIDINE 20 MG/2 ML VIAL IV PUSH SCH (07:47)
[2017-06-04] MEDS: INSULIN NovoLIN REGULAR SUPPLEMENTAL SCALE SQ SCH ×2 (08:00→11:36)
[2017-06-04] MEDS: BUDESONIDE-FORMOTEROL 160/4.5 MCG INHALER INH SCH (10:15)
[2017-06-04] MEDS ORDERED: LEVA750T9 PO (14:17)
[2017-06-04] MEDS ORDERED: ACETAMINOPHEN/HYDROcodone 325 MG/7.5 MG TAB PO ONE (15:15)
--- NOTE | 2017-06-04 22:55 | EKG ---
Date Performed: 06/03/2017 Time Performed: 11:06:10 PTAGE: 67 years EKG: Sinus rhythm NORMAL ECG PREVIOUS TRACING : 03/29/2016 21.15 Since the prior tracing, there has been no significant forrester david DOCTOR: Magan Peralta Interpretating Date/Time 06/04/2017 22:52:58
--- NOTE | 2017-06-05 13:58 | PQ ---
Physician Query Response Document PATIENT: UMM MCCLOUD : 1950 ADMIT DATE: 06/03/2017 1:21 PM DISCH DATE: 06/04/2017 4:30 PM RESPONDING PROVIDER #: [email or web address] QUERY TEXT: Clarification of Clinical Diagnostic Findings Toxic encephalopathy POA in the setting of ETOH and polysubstance abuse requiring treatment with hold ing Seroquel, Cymbalta, Gabapentin and hydrocodone; Brain MRI; Monitor neuro status. Other explanation of clinical findings. Unable to determine (no explanation for clinical findings). The patient's Clinical Indicators include: The medical record reflects the following clinical findings, treatment, and risk factors. * Clinical Indicators; On admit; AMS unable to answer questions, stupor, GCS 11, post narcan reversal of stuporous state * Risk Factors; ETOH and polystubtance abuse * Treatment; Hold Seroquel, Cymbalta, Gabapentin and hydrocodone; Brain MRI; Monitor neuro status Please clarify and document your clinical opinion in the progress notes and discharge summary includi ng the definitive and/or presumptive diagnosis (suspected or probable), related to the above clinical findings. Please include clinical findings supporting your diagnosis. Thank you, Ella Quesada CDS: Ella Quesada Patient Unit: [facility] Contact Number: [phone] Room: 526 Query created by: Ella Quesada on 06/04/2017 11:05 AM RESPONSE TEXT: Toxic encephalopathy due to multiple factors including opioid use, psychotropic medications. QUERY TEXT: Clarification of Clinical Diagnostic Findings Poisoning by benzodiazepines in the setting of ETOH and polysubstance abuse requiring treatment with IV Narcan, Oxygen, neuro checks and MRI Brain. Other explanation of clinical findings. Unable to determine (no explanation for clinical findings). The patient's Clinical Indicators include: The medical record reflects the following clinical findings, treatment, and risk factors. * Clinical Indicators: On admit; Toxicology + Benzodiazepines and Opiates, stuporous and GCS 11, acut e respiratory insufficiency * Risk Factors: ETOH (multiple cocktails, shots of saida and a few glasses of wine) and polysubstanc e abuse * Treatment: Narcan 0.4mg IV with reversal of stuporous state; Monitoring neuro status; Oxygen suppor t; MRI Brain Please clarify and document your clinical opinion in the progress notes and discharge summary includi ng the definitive and/or presumptive diagnosis (suspected or probable), related to the above clinical findings. Please include clinical findings supporting your diagnosis. Thank you, Ellaapple Quesada CDS: Ella Quesada Patient Unit: [facility] Contact Number: [phone] Room: 526 Query created by: Ella Quesada on 06/04/2017 11:24 AM RESPONSE TEXT: Suspected opioid overdose requiring Narcan administration. QUERY TEXT: Clarification of Clinical Diagnostic Findings Acute respiratory failure with hypercapnia in the setting of Acute hypercapnic respiratory insufficie ncy requiring treatment with oxygen, DuoNebs, and PRN noninvassive positive pressure support. Other explanation of clinical findings. Unable to determine (no explanation for clinical findings). The patient's Clinical Indicators include: The medical record reflects the following clinical findings, treatment, and risk factors. * Clinical Indicators: On admit; pH 7.24, pCO2 52 * Risk Factors; Acute hypercapnic respiratory insufficiency with ETOH and polysubstance abuse, h/o as thma * Treatment: Oxygen support to maintain sats above 92%, DuoNebs q6 plus q2 PRN for shortness of breat h, Noninvassive positive pressure ventilation PRN for respiratory distress Please clarify and document your clinical opinion in the progress notes and discharge summary includi ng the definitive and/or presumptive diagnosis (suspected or probable), related to the above clinical findings. Please include clinical findings supporting your diagnosis. Thank you, Ella Quesada CDS: Ella Quesada Patient Unit: [facility] Contact Number: [phone] Room: 526 Query created by: Ella Quesada on 06/04/2017 12:38 PM RESPONSE TEXT: Hypercapnic respiratory failure was likely due to opioid use. Electronically signed by: Abrahan Mejia DO 06/05/2017 1:54 PM
--- NOTE | 2017-06-05 23:56 | HHI.DS ---
Discharge Summary Admission Date Jun 03, 2017 at 13:21 Discharge Date: Jun 04, 2017 Admitting Diagnosis altered mental status, hypovolemic shock Procedures None. CBC/BMP: 06/04/17 0350 06/04/17 0350 Significant Findings Laboratory Tests Test 06/03/17 11:15 06/03/17 11:17 06/03/17 11:23 06/03/17 13:23 White Blood Count 14.2 TH/MM3 (4.0-11.0) Eosinophils (%) (Auto) 4.4 % (0.0-4.0) Neutrophils # (Auto) 9.7 TH/MM3 (1.8-7.7) Eosinophils # (Auto) 0.6 TH/MM3 (0-0.4) Urine Turbidity HAZY (CLEAR) Urine Calcium Oxalate Crystals OCC /hpf (NONE) Urine Bacteria FEW /hpf (NONE) Urine Mucus FEW /lpf (OCC) Blood Urea Nitrogen 24 MG/DL (7-18) Creatinine 1.37 MG/DL (0.50-1.00) Random Glucose 136 MG/DL (74-106) Estimat Glomerular Filtration Rate 38 ML/MIN (>89) Troponin I LESS THAN 0.02 NG/ML Thyroid Stimulating Hormone 3rd Gen 4.560 uIU/ML (0.358-3.740) Salicylates Level LESS THAN 1.7 MG/DL Acetaminophen Level 8.8 MCG/ML (10.0-30.0) Urine Opiates Screen POS (NEG) Urine Benzodiazepines Screen POS (NEG) Blood Gas HCO3 21 mmol/L (22-26) Blood Gas Base Excess -4.8 mmol/L (-2-2) Arterial Blood pH 7.24 (7.380-7.420) Arterial Blood Partial Pressure CO2 52 mmHg (38-42) Test 06/03/17 16:00 06/03/17 19:58 06/03/17 21:32 06/04/17 03:50 Blood Gas HCO3 21 mmol/L (22-26) Blood Gas Base Excess -5.0 mmol/L (-2-2) Arterial Blood pH 7.27 (7.380-7.420) Arterial Blood Partial Pressure CO2 46 mmHg (38-42) Blood Gas Hemoglobin 11.4 G/DL (12.0-16.0) Red Blood Count 3.85 MIL/MM3 (4.00-5.30) Hematocrit 34.4 % (35.0-46.0) Eosinophils (%) (Auto) 10.9 % (0.0-4.0) Eosinophils # (Auto) 0.9 TH/MM3 (0-0.4) Total Protein 5.2 GM/DL (6.4-8.2) Albumin 2.9 GM/DL (3.4-5.0) Calcium Level 7.7 MG/DL (8.5-10.1) Sodium Level 146 MEQ/L (136-145) Chloride Level 115 MEQ/L (98-107) Imaging Last Impressions Head CT 06/03/17 1112 Signed Impressions: Service Date/Time: Saturday, June 03, 2017 11:48 - CONCLUSION: Negative for an acute process. Pacheco Baker MD FACR Chest X-Ray 06/03/17 1112 Signed Impressions: Service Date/Time: Saturday, June 03, 2017 11:26 - CONCLUSION: Underinflation with bibasilar airspace opacity which could represent either atelectasis or airspace consolidation. Issac Ortiz MD Brain MRI 06/03/17 0000 Signed Impressions: Service Date/Time: Saturday, June 03, 2017 15:37 - CONCLUSION: Negative MR of the brain for acute ischemic event. There is no parenchymal hemorrhage, acute infarction or mass lesion. Pacheco Baker MD FACR Pt update on day of discharge Patient is doing well. No acute concerns. Denies any chest pain, SOB, fever, chills. Pt Condition on Discharge: Good Discharge Disposition: Discharge Home Discharge Time: <= 30 minutes Discharge Instructions DIET: Follow Instructions for: Heart Healthy Diet Speech Therapy-Diet Recommends: Regular Activities you can perform: Regular-No Restrictions Follow up Referrals: PCP Follow-up - 1 Week New Medications: Levofloxacin (Levaquin) 750 Mg Tablet 750 MG PO DAILY for Infection, #7 TAB 0 Refills Continued Medications: Albuterol 18 GM Inh (Ventolin Hfa 18 GM Inh) 90 Mcg/Act Aer 1-2 PUFF INH Q6H PRN for SHORTNESS OF BREATH, #1 INHALER [address] (Cymbalta DR) 60 Mg Capdr 60 MG PO DAILY, #30 CAP 0 Refills Fluticasone Nasal [place] (Flonase Nasal [place]) 50 Mcg/Act [place] 2 SPRAY EACH NARE DAILY for Allergies, #1 BOTTLE 0 Refills Fluticasone-Salmeterol Inh (Advair Diskus Inh) 500-50 Mcg/Blist Aer 1 PUFF INH BID, #1 INHALER 0 Refills Rinse mouth after use. Gabapentin (Gabapentin) 100 Mg Cap 200 MG PO BID for Pain Management, #60 CAP 0 Refills Hydrocodone-Acetaminophen (Hydrocodone-Acetaminophen) 10-325 mg Tab 1 TAB PO TID PRN for PAIN, TAB 0 Refills Montelukast (Singulair) 10 Mg Tab 10 MG PO HS, #30 TAB 0 Refills Omeprazole (Omeprazole) 40 Mg Cap 40 MG DAILY, #30 CAP 0 Refills Quetiapine (Seroquel) 50 Mg Tab 50 MG PO BID, #60 TAB 0 Refills Discontinued Medications: Amoxicillin (Amoxicillin) 500 Mg Cap 500 MG PO Q8HR for Infection, CAP 0 Refills Prednisone (48) 10 mg tab Dose Pack (Prednisone (48) 10 mg tab Dose Pack) 10 Mg Dspk 10 MG PO DIRECTED for Inflammation, #1 DSPK 0 Refills Take 3 tabs (30mg) daily x 5 days then 2 tabs (20mg) daily x 5 days then 1 tab (10mg) daily x 5 days Carmen Mejia DO Jun 05, 2017 23:56
== END 2017-06-04 16:30 | disposition home or self-care (01) | DRG 91 ==
LOC: NEPE 10:48 → NEDA 13:21 → HIMN 16:00
PROVIDERS: ADMIT Hospitalist; ATTEND Hospitalist
DX: G92 Toxic encephalopathy (principal); J96.02 Acute respiratory failure with hypercapnia; R57.1 Hypovolemic shock; N17.9 Acute kidney failure, unspecified; T40.2X1A Poisoning by other opioids, accidental (unintentional), initial encounter; J45.909 Unspecified asthma, uncomplicated; M79.7 Fibromyalgia; R40.2420 Glasgow coma scale score 9-12, unspecified time; M06.9 Rheumatoid arthritis, unspecified; I10 Essential (primary) hypertension; K21.9 Gastro-esophageal reflux disease without esophagitis
CPT/HCPCS: 36600; 51702; 70450; 70551; 71045; 80053; 80307; 81001; 82140; 82533; 82550; 82805; 82948; 83605; 83735; 84443; 84484; 85025; 85610; 87040; 87086; 87641; 93005; 94150; 94640; 94664; 96374; 99292; J1644; J2310; J7030; J7042